=== PATIENT | male | born 1970 | race Caucasian/White ===

== ENCOUNTER 2016-10-01 15:59 | Emergency (ER) | payer BC ==
[2016-10-01] MEDS ORDERED: predniSONE 20 MG TAB PO STA (16:59)
--- NOTE | 2016-10-01 17:10 | ED ---
General Adult HPI - General Chief complaint: Eye Problems Stated complaint: Left side drooping, numbness Time Seen by Provider: 10/01/16 16:35 Source: patient Mode of arrival: ambulatory Limitations: no limitations - History of Present Illness Initial comments: This 46-year-old white male presents with the complaint of a left facial droop as well as some left tongue numbness, some left facial numbness, and decreased ability to close his left eye. He states that his symptoms came on yesterday. He has had some irritation to his left eye today. He denies any extremity weakness or paresthesias. He denies any problems with coordination. He denies any previous similar incidents. He relates that he is fairly healthy overall and is a runner. Was up in [place] when this occurred and they drove back down to home today to be further evaluated. 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 - Related Data Home Medications Medication Instructions Recorded Confirmed Aspirin EC [Ecotrin Low Dose] 81 mg PO DAILY 10/01/16 10/01/16 Atorvastatin [Lipitor] 40 mg PO DAILY 10/01/16 10/01/16 Levothyroxine Sodium [Synthroid] 50 mcg PO DAILY 10/01/16 10/01/16 Previous Rx's Medication Instructions Recorded predniSONE 20 mg PO TID #15 tab 10/01/16 valACYclovir HCL [Valtrex] 1,000 mg PO Q8HR #21 tab 10/01/16 Allergies Allergy/AdvReac Type Severity Reaction Status Date / Time No Known Allergies Allergy Unverified 10/01/16 16:32 Review of Systems ROS Statement: Those systems with pertinent positive or pertinent negative responses have been documented in the HPI. ROS Other: All systems not noted in ROS Statement are negative. Past Medical History Past Medical History: No Reported History, Hyperlipidemia History of Any Multi-Drug Resistant Organisms: None Reported Past Surgical History: Appendectomy Past Psychological History: No Psychological Hx Reported Smoking Status: Never smoker Past Alcohol Use History: None Reported Past Drug Use History: None Reported General Exam - General Exam Comments Initial Comments: GENERAL: The patient is well nourished and well hydrated. VITAL SIGNS: Heart rate, blood pressure, respiratory rate reviewed as recorded in nurse's notes. EYES: Pupils are round and reactive. Extraocular movements are intact. No lid redness or swelling. There is some very mild left conjunctival erythema. ENT: No external evidence of injury, swelling, or ecchymosis. Airway is patent. Throat is clear. There is an obvious left facial droop. It appears that the paralysis also effects his left forehead and eyebrow. NECK: Nontender. No swelling or evidence of injury. No subcutaneous emphysema. Trachea is midline. No thyroid mass. HEART: Regular rate and rhythm. Good peripheral pulses. LUNGS/CHEST: Breath sounds clear and equal bilaterally. No rales, rhonchi, or wheezes. No ecchymosis, subcutaneous emphysema, or tenderness. ABDOMEN: Abdomen soft without tenderness. No palpable masses or organomegaly. No peritoneal signs. No abdominal wall swelling or ecchymosis. EXTREMITIES: No extremity tenderness. Normal muscle tone and function. No thoracolumbar tenderness. Normal strength to extremities. NEUROLOGIC: Sensation is grossly intact to everywhere except for the left face. Cranial nerve exam reveals tongue is midline, speech is clear. There is an obvious left facial droop. There is some slight numbness in the inferior left face. SKIN: No abrasions or ecchymosis is noted. No induration or masses noted. PSYCHIATRIC: Alert and oriented. Appropriate behavior and judgment. Limitations: no limitations Course Vital Signs 10/01/16 16:03 Temperature 98.1 F Pulse Rate 18 L Respiratory 71 H Rate Blood Pressure 137/75 O2 Sat by Pulse 97 Oximetry Medical Decision Making - Medical Decision Making The patient is seen and examined. It is felt as though he has classic symptoms for Marquez's palsy. Is explained to him that he is to utilize the eye lubricating drops at least every one to 2 hours while symptoms persist during the day. He is to tape his left eye shut at night. It is felt as though he would benefit from some prednisone and Valtrex and is given 60 mg of prednisone in the ER. Is felt that he is stable for discharge and close follow-up with his doctor and leaves in no apparent distress. Disposition Clinical Impression: Marquez's palsy Disposition: HOME SELF-CARE Condition: Good Instructions: Eye Lubricant (Into the eye), Marquez Palsy (ED) Additional Instructions: Please take your left eye shut at night or whenever you sleep. Prescriptions: predniSONE 20 mg PO TID #15 tab valACYclovir HCL [Valtrex] 1,000 mg PO Q8HR #21 tab Referrals: Jesica Masterson III, MD [Primary Care Provider] - 1-2 days Time of Disposition: 17:05
[2016-10-01 17:26] VITALS: BP 115/80; PULSE 75; RESP 16; TEMP 97.9
== END 2016-10-01 17:32 | disposition home or self-care (01) ==
LOC: EC 15:59
DX: G51.0 Bell's palsy (principal); E78.5 Hyperlipidemia, unspecified; Z79.82 Long term (current) use of aspirin; Z79.899 Other long term (current) drug therapy
CPT/HCPCS: 99283; J7512

== ENCOUNTER 2019-01-01 11:43 | Day surgery (SDC) | payer BC ==
[2018-12-29 08:37] VITALS: BMI 30.5
[~2019-01-01 11:43] MED LIST: LACTATED RINGERS 1,000 ML IV SCH; LIDOCAINE 1% 20 ML VIAL (10MG/ML) FOR IV START INTRADERMA PRN
[2019-01-01 12:07] VITALS: RESP 16; TEMP 97.4
[2019-01-01] MEDS ORDERED: MIDAZOLAM 2 MG/2 ML VIAL ONE (13:27)
[2019-01-01] MEDS ORDERED: PROPOFOL 10 MG/ML 20 ML VIAL IV ONE (13:27)
--- NOTE | 2019-01-01 13:34 | P.GSHP ---
History of Present Illness H&P Date: 01/01/19 Chief Complaint: Screening colonoscopy Is a 48-year-old male who presents today for screening colonoscopy. Past Medical History Past Medical History: Hyperlipidemia, Osteoarthritis (OA), Thyroid Disorder History of Any Multi-Drug Resistant Organisms: None Reported Past Surgical History: Appendectomy Past Anesthesia/Blood Transfusion Reactions: No Reported Reaction Smoking Status: Never smoker - Past Family History Mother Family Medical History: No Reported History Medications and Allergies Home Medications Medication Instructions Recorded Confirmed Type Aspirin EC [Ecotrin Low Dose] 81 mg PO DAILY 10/01/16 12/29/18 History Atorvastatin [Lipitor] 40 mg PO DAILY 10/01/16 12/29/18 History Levothyroxine Sodium [Synthroid] 75 mcg PO DAILY 12/29/18 12/29/18 History Testosterone Cypionate 200 mg IM Q14D 12/29/18 12/29/18 History [Depo-Testosterone] Allergies Allergy/AdvReac Type Severity Reaction Status Date / Time No Known Allergies Allergy Unverified 01/01/19 11:59 Surgical - Exam Vital Signs Temp Pulse Resp BP Pulse Ox 97.4 F L 63 16 103/60 95 01/01/19 12:05 01/01/19 12:05 01/01/19 12:05 01/01/19 12:05 01/01/19 12:05 - General well developed, well nourished, no distress - Eyes PERRL - ENT normal pinna - Neck no masses - Respiratory normal expansion - Cardiovascular Rhythm: regular - Abdomen Abdomen: soft, non tender Assessment and Plan Assessment: We'll perform screening colonoscopy.
--- NOTE | 2019-01-01 13:42 | P.OP ---
Date of Procedure: 01/01/19 Preoperative Diagnosis: Screening colonoscopy Postoperative Diagnosis: Normal colon Procedure(s) Performed: Colonoscopy Anesthesia: MAC Surgeon: Jt Angel Pathology: none sent Condition: stable Disposition: PACU Description of Procedure: PROCEDURE: The patient was placed on the endoscopy table in the lateral position. Digital rectal examination was performed which revealed no abnormalities. The prostate was symmetrical without nodules. Flexible colonoscope was then placed in the patient's anus and passed throughout the entire colon. The ileocecal valve was visualized. The cecum, ascending, transverse, descending and sigmoid colon were normal. The rectum was normal as well. There were no masses, polyps or diverticula noted in the entire colon. SUMMARY OF FINDINGS: Normal colonoscopy.
[2019-01-01 14:04] VITALS: BP 109/71; PULSE 53
== END 2019-01-01 14:30 | disposition home or self-care (01) ==
LOC: ORWHC2ENDO 11:43
PROVIDERS: ATTEND Surgery
DX: Z12.11 Encounter for screening for malignant neoplasm of colon (principal); E07.9 Disorder of thyroid, unspecified; E78.5 Hyperlipidemia, unspecified; Z79.82 Long term (current) use of aspirin; Z79.890 Hormone replacement therapy; Z79.899 Other long term (current) drug therapy
CPT/HCPCS: J2250; J2704; G0121

== ENCOUNTER → 2022-02-15 | Outpatient (CLI) | payer BC ==
--- NOTE | 2022-02-15 10:49 | US ---
EXAMINATION TYPE: US abdomen complete DATE OF EXAM: 02/15/2022 COMPARISON: NONE CLINICAL HISTORY: R74.01 elevated levels. Elevated liver enzymes TECHNIQUE: Multiple sonographic images of the abdomen are obtained. FINDINGS: EXAM MEASUREMENTS: Liver Length: 17.5 cm Gallbladder Wall: 0.2 cm CBD: 0.4 cm Spleen: 11.9 cm Right Kidney: 10.5 x 5.1 x 5.3 cm Left Kidney: 11.4 x 6.0 x 6.1 cm Pancreas: obscured by overlying midline bowel gas Liver: measures in upper limits of normal, attenuating, increased echogenicity . No focal lesions d efinitively visualized. Gallbladder: wnl. No pericholecystic fluid, wall thickening, shadowing calculi. Evidence for sonographic Henderson's sign: no CBD: wnl Spleen: wnl Right Kidney: wnl . No hydronephrosis, shadowing calculi, or contour deforming solid mass. Left Kidney: wnl . No hydronephrosis, shadowing calculi, or contour deforming solid mass. Upper IVC: wnl Abd Aorta: proximal portion obscured by overlying midline bowel gas, visualized mid and distal porti ons appear wnl IMPRESSION: 1. No acute process. 2. Hepatic steatosis.
== END | disposition home or self-care (01) ==
LOC: RADUSWWP 06:55
PROVIDERS: ATTEND Family Medicine
DX: K76.0 Fatty (change of) liver, not elsewhere classified (principal)
CPT/HCPCS: 76700

== ENCOUNTER → 2022-03-22 | Outpatient (CLI) | payer BC ==
--- NOTE | 2022-03-22 12:11 | MR ---
EXAMINATION TYPE: MR Prostate wo/w con DATE OF EXAM: 03/22/2022 8:02 AM COMPARISON: None. CLINICAL INDICATION:Male, 52 years old with history of C61 MALIGNANT NEOPLASM OF PROSTATE; TECHNIQUE: Multi-planar, multi-sequence imaging of the pelvis is performed prior to and following the uncomplicated administration of bolus intravenous gadolinium. CONTRAST: 11 Gadavist Interpretive Criteria: PI-RADS v2.1 SERUM PSA: 1.8 - 06/29/2021 2.11 - 12/29/2020 SURGICAL PATHOLOGY: 03/17/2021 right lateral mid gland Jordyn 3+3=6 FINDINGS: Prostatic dimensions: 5.2 x 4.2 x 3.8 cm. "Bullet" Volume: 54.32 (PSA density=0.03 ng/mL/mL) CENTRAL GLAND (Central and Transition Zones/CZ+TZ): Multiple bilateral, heterogenous appearing hypertrophic stromal nodules, without suspicious lesion. S kirsty focus of intrinsic high T1 signal likely secondary to prostatitis and/or hemorrhage from prior biopsy (PI-RADS 2) PERIPHERAL ZONE (PZ): Bilateral linear, indistinct wedgelike areas of low ADC, and low T2 signal, No evidence of masslike a bnormality, or localized perfusional hypervascularity, to further suggest a focus of clinically signi ficant prostate cancer. (PI-RADS 2) SEMINAL VESICLES (SV): Symmetric and unremarkable. PERIPROSTATIC TISSUES: Unremarkable. LYMPH NODES: No enlarged pelvic lymph node. REMAINING PELVIS: Bladder wall is within normal limits given distention. No abnormal free or organized intrapelvic fluid collection. No pathologic bowel dilation or mural thickening. OSSEOUS STRUCTURES: No suspicious osseous abnormality. IMPRESSION: 1. No specific features for high-risk prostate cancer. Maximum PI-RADS score: 2. 2. Moderate BPH, estimated gland volume 54 mL. 3. No suspicious osseous lesion. No lymphadenopathy. No evidence of prostate adenocarcinoma involving the periprostatic tissues.
== END | disposition home or self-care (01) ==
LOC: RADMRIMAIN 07:04
PROVIDERS: ATTEND Urology
DX: C61 Malignant neoplasm of prostate (principal); N40.0 Benign prostatic hyperplasia without lower urinary tract symptoms
CPT/HCPCS: 72197; A9585

== ENCOUNTER → 2023-03-07 | Outpatient (CLI) | payer BC | END | disposition home or self-care (01) | LOC: LABWHC1 14:45 | PROVIDERS: ATTEND Urology | DX: C61 Malignant neoplasm of prostate (principal) | CPT/HCPCS: 36415; 84153 ==

== ENCOUNTER → 2023-06-22 | Outpatient (CLI) | payer BC ==
[2023-06-22 16:54] LABS: Basophils # (A) 0.05 X 10*3/uL (0.00-0.10); Basophils % (A) 0.9 %; Eosinophils # (A) 0.12 X 10*3/uL (0.04-0.35); Eosinophils % (A) 2.1 %; HCT 44.5 % (39.6-50.0); HGB 14.3 g/dL (13.0-17.0); Lymphocytes # (A) 1.94 X 10*3/uL (0.90-5.00); Lymphocytes % (A) 33.4 %; MCH 26.8 pg (27.0-32.0); MCHC 32.1 g/dL (32.0-37.0); MCV 83.3 FL (80.0-97.0); Mean Platelet Volume 9.2 FL (9.5-12.2); Monocytes # (A) 0.51 X 10*3/uL (0.20-1.00); Monocytes % (A) 8.8 %; NRBC Per 100 WBC 0 X 10*3/uL (0.00-0.01); Neutrophils # (A) 3.17 X 10*3/uL (1.80-7.70); Neutrophils % (A) 54.5 %; Platelet Count 274 X 10*3/uL (140-440); RBC 5.34 X 10*6/uL (4.40-5.60); RDW 13.8 % (11.5-14.5); WBC 5.81 X 10*3/uL (4.50-10.00)
[2023-06-22 17:06] LABS: Appearance,Urine Clear (Clear); Bilirubin,Urine Negative (Negative); Blood,Urine Negative (Negative); Color,Urine Yellow (Yellow); Ketones,Urine Negative (Negative); Nitrite,Urine Negative (Negative); PH, Urine 7.5; Urobilinogen,Urine 0.2 E.U./DL
[2023-06-22 17:08] LABS: BUN/Creat Ratio 16.56 Ratio (12.00-20.00); Blood Urea Nitrogen 14.9 mg/dL (9.0-27.0); Calcium 9.6 mg/dL (8.7-10.3); Carbon Dioxide 27.3 mmol/L (21.6-31.8); Chloride 104 mmol/L (96-109); Glucose 116 mg/dL (70-110); Sodium 141 mmol/L (135-145)
== END | disposition home or self-care (01) ==
LOC: LABPAT 08:10
PROVIDERS: ATTEND Urology
DX: Z01.812 Encounter for preprocedural laboratory examination (principal); C61 Malignant neoplasm of prostate
CPT/HCPCS: 36415; 80048; 81003; 85025; 86850; 86900; 86901; 87086

== ENCOUNTER 2023-06-30 09:43 | Day surgery (SDC) | payer BC ==
[2023-06-30] MEDS ORDERED: HYDROmorphone 0.5 MG/0.5 ML SYRINGE IVP PRN (10:11)
--- NOTE | 2023-06-30 10:37 | P.HPIHPCON ---
History of Present Illness H&P Date: 06/28/23 Chief Complaint: Prostate cancer This is a 53-year-old male with history of [place] 7 prostate cancer. Option of radiation therapy versus robotic prostatectomy was discussed with him in detail, he agreed to proceed with a robotic radical prostatectomy. Aware the risk which includes but not limited to bleeding, infection, erectile dysfunction, urine incontinence. Discussed risk of injury to nearby organs which include but not limited to bladder, rectum and bowel. Risk of anesthesia was also discussed. Discussed potential needing additional treatments and potential of cancer recurrence. He Understood all the risk and agreed proceed Consent for Procedure: I have explained the operation/procedure to the patient, including the risks, benefits, side effects, alternative therapies (including not receiving the proposed treatment or service), the likelihood of the patient achieving his/her goals, and potential recuperation problems for the procedure/sedation/analgesia, as well as any blood products, if indicated. I also explained to the patient the risks, benefits and side effects of the alternatives, as well as the risks related to not receiving the proposed procedure, care, treatment, or services. Past Medical History Past Medical History: Hyperlipidemia, Osteoarthritis (OA), Thyroid Disorder Additional Past Medical History / Comment(s): hypothyroidism, prostate cancer dx. 2021 History of Any Multi-Drug Resistant Organisms: None Reported Past Surgical History: Appendectomy Past Anesthesia/Blood Transfusion Reactions: No Reported Reaction Smoking Status: Never smoker - Past Family History Mother Family Medical History: No Reported History Medications and Allergies Home Medications Medication Instructions Recorded Confirmed Type Aspirin EC [Ecotrin Low Dose] 81 mg PO DAILY 10/01/16 06/27/23 History Atorvastatin [Lipitor] 40 mg PO QAM 10/01/16 06/27/23 History Levothyroxine Sodium [Synthroid] 88 mcg PO QAM 06/27/23 06/27/23 History Multivitamin [Multivitamins Adult 1 each PO QAM 06/27/23 06/27/23 History Gummies] Sildenafil Citrate 20 mg PO DAILY PRN 06/27/23 06/27/23 History Allergies Allergy/AdvReac Type Severity Reaction Status Date / Time No Known Allergies Allergy Verified 06/30/23 10:18 Surgical - Exam - General no distress, no pain - Eyes normal ocular movement, no pale - ENT normal nares, normal mucosa - Respiratory normal expansion, normal respiratory effort - Abdomen Abdomen: soft, non tender Assessment and Plan Assessment: OR for robotic radical prostatectomy possible pelvic lymph node dissection
[2023-06-30] MEDS: LACTATED RINGERS 1,000 ML IV SCH (10:45)
[2023-06-30] MEDS: LIDOCAINE 1% (10MG/ML) FOR IV START INTRADERMA ONE ×2 (10:45→10:50)
[2023-06-30] MEDS: DEXAMETHASONE SOD PHOSPHATE 4 MG/ML 1 ML VIAL IV ONE (11:00)
[2023-06-30] MEDS: ONDANSETRON 4 MG/2 ML VIAL IVP ONE (11:00)
[2023-06-30] MEDS: MIDAZOLAM 2 MG/2 ML VIAL IVP ONE (11:11)
[2023-06-30] MEDS: HEPARIN SODIUM,PORCINE 5,000 UNIT/ML 1 ML VIAL SQ PRN (11:20)
[2023-06-30] MEDS ORDERED: MIDAZOLAM 2 MG/2 ML VIAL ONE (11:35)
[2023-06-30] MEDS ORDERED: fentaNYL (PF) 50 MCG/ML 2 ML AMP ONE (11:35)
[2023-06-30] MEDS ORDERED: ROPIVACAINE 5 MG/ML 30 ML VIAL ONE (11:35)
[2023-06-30] MEDS ORDERED: NEOSTIGMINE 1 MG/ML 10 ML VIAL ONE (11:35)
[2023-06-30] MEDS ORDERED: HYDROmorphone (PF) 1 MG/ML ONE (11:35)
[2023-06-30] MEDS ORDERED: SUCCINYLCHOLINE CHLORIDE 200 MG/10 ML VIAL IV ONE (11:35)
[2023-06-30] MEDS ORDERED: GLYCOPYRROLATE 0.2 MG/ML 2 ML VIAL ONE (11:35)
[2023-06-30] MEDS ORDERED: DEXAMETHASONE SOD PHOSPHATE 4 MG/ML 1 ML VIAL ONE (11:35)
[2023-06-30] MEDS ORDERED: PROPOFOL 10 MG/ML 20 ML VIAL IV ONE (11:35)
[2023-06-30] MEDS ORDERED: SODIUM CHLORIDE 0.9% (PF) 10 ML VIAL ONE (11:35)
[2023-06-30] MEDS ORDERED: ROCURONIUM 10 MG/ML (5 ML VIAL) IV ONE (11:35)
[2023-06-30] MEDS ORDERED: LIDOCAINE 1% INJ 10MG/ML (20 ML MDV) ONE (11:35)
[2023-06-30] MEDS ORDERED: ONDANSETRON 4 MG/2 ML VIAL IVP PRN (12:04)
--- NOTE | 2023-06-30 12:32 | P.ANPRN ---
Procedure Note - Anesthesia - Nerve Block Performed Bilateral Erector Spinae Single Time Out Performed: Yes Date of Procedure: 06/30/23 Procedure Start Time: :11 Procedure Stop Time: :19 Location of Patient: PreOp Indication: Acute Post-Operative Pain, Requested by Surgeon Sedation Type: Sedate with meaningful contact maintained Preparation: Sterile Prep Position: Prone Needle Types: Pajunk Needle Gauge: 21 Ultrasound used to visualize needle placement: Yes Ultrasound used to observe medication spread: Yes Blood Aspirated: No Pain Paresthesia on Injection Noted: No Resistance on Injection: Normal Image Stored and Saved: Yes Events: Uneventful and Well Tolerated (ropi .5% 15cc plus ns 10cc plus dexamethasone 4mg given bilaterally at L1)
[2023-06-30] MEDS: BUPIVACAINE (PF) 0.25% 30 ML VIAL SQ ONE ×2 (12:54→15:53)
--- NOTE | 2023-06-30 15:39 | P.OP ---
Date of Procedure: 06/30/23 Preoperative Diagnosis: Prostate cancer Postoperative Diagnosis: Same Procedure(s) Performed: Robotic radical prostatectomy Implants: None Anesthesia: LOC Surgeon: Caleb Cartagena Estimated Blood Loss (ml): 150 Pathology: other (Prostate and bilateral seminal vesicles) Condition: stable Disposition: PACU Indications for Procedure: This is a 53-year-old male with history of [place] 7 prostate cancer. Option of radiation therapy versus robotic prostatectomy was discussed with him in detail, he agreed to proceed with a robotic radical prostatectomy. Aware the risk which includes but not limited to bleeding, infection, erectile dysfunction, urine in continence. Discussed risk of injury to nearby organs which include but not limited to bladder, rectum and bowel. Risk of anesthesia was also discussed. Discussed potential needing additional treatments and potential of cancer recurrence. He Understood all the risk and agreed proceed Description of Procedure: After preoperative antibiotics were started, the patient was taken to the operating room. Anesthesia was induced and the patient was placed in a supine position, with adequate padding of the pressure points, shoulders, back, legs and arms. He was then prepped and draped in the standard fashion. A critical pause was performed using two patient identifiers. A 16F mera catheter was placed to gravity drainage. A pneumo-peritoneum was created with placement of a Veress needle to 20 mm Hg without complication, and a 8 Fr trocar was placed above the umbillicus. Under direct vision a 8mm robotic ports was placed lateral to each rectus slightly below the camera port. The left iliac fossa 8mm port was placed. The right support assistant right iliac fossa 12mm port and right paramedian 5mm portwere placed. After the patient was placed in the trendelenberg position, the robot was then docked to the 8mm robotic ports and then each robotic arm and tower was checked in relation to the patient's legs and hands to avoid inadvertent compression. The peritoneal cavity was inspected. An inverted U-shaped incision began laterally to the left medial umbilical ligament and extended high across the midline to the right umbilical ligament. The limbs of the "U" extended to the level of the vasa on both sides. We next developed the preperitoneal space and the space of Retzius. Cautery was used to dissected the bladder away from the prostate. After the anterior bladder neck was incised and the bladder entered the the posterior bladder neck was exposed and the ureteral orifces identified. The posterior bladder neck was then incised and dissected away from the prostate. The vas and the seminal vesicles were now exposed and dissected to their insertions into the prostate and were not spared. The posterior layer of the Denonvillier's fascia was incised to enter giuseppe the plane between prostate and perirectal fat. Each lateral pedicle was controlled with clips and cautery for hemostasis. Complete nerve preservation was performed bilaterally. The puboprostatic ligament was incised where it inserted into the apex of the prostate and a plane between urethra and dorsal venous complex developed to expose the anterior urethral surface. The anterior wall of the urethra was transected with the cut setting a few millimeters distal to the apex of the prostate. The dorsal vein was ligated using 3-0 V lock there was thickened tissue along the posterior ur ethra, this was suspicious for possible prostatic tissue the tissue was completely excised and sent to pathology as apical margin The urethrovesical anastomosis was performed . the posterior denovillers was reapproximated using 3-0 V lock. A 9 and 6 inch 3-0 V-Lock suture was used to anastomose the urethra and bladder, starting at the 6:00 posterior position. Mucosa was secured in every stitch, to ensure a mucosa to mucosa anastomosis. The stitch was regularly cinched and the anastomosis tightened. Care was taken to not violate the ureteral orifices. The Mera catheter was advanced, the bladder filled, and the anastomosis was tested, as described above. Anastomsis was watertight at 150 mL The periumbilical fascia was closed with 1-0-PDS suture in [id number] fashion. All ports were closed with a subcuticular 4-0 monocryl and Dermabond. Sponge, instrument, and needle counts were correct at the end of the case x2. All specimens was sent to pathology for diagnosis and will be available in a week. The patient tolerated the surgery well and without complication. He awoke without difficulty and was taken to the recovery room in stable condition
[2023-06-30] MEDS: HYDROmorphone 0.5 MG/0.5 ML SYRINGE IVP ONE (16:10)
[2023-06-30] MEDS: LACTATED RINGERS 1,000 ML IV ONE (16:13)
[2023-06-30] MEDS: SCOPOLAMINE 1 MG/72 HR PATCH TRANSDERM ONE (17:20)
[2023-06-30] MEDS: droPERidol 5 MG/2 ML VIAL IVP ONE (17:20)
[2023-06-30] MEDS: HEPARIN SODIUM,PORCINE 5,000 UNIT/ML 1 ML VIAL SQ SCH (17:20)
[2023-06-30] MEDS: D5-0.45% NACL WITH KCL 20MEQ/L 1,000 ML IV SCH (18:57)
[2023-06-30] MEDS: KETOROLAC 15 MG/ML 1 ML VIAL IVP SCH (21:29)
[2023-06-30] MEDS: BACTRIM DS PO SCH (21:35)
[2023-06-30] MEDS: HYDROmorphone 1 MG/ML 1 ML SYRINGE IVP PRN (21:35)
[2023-07-01] MEDS: LEVOTHYROXINE 88 MCG TAB PO SCH (06:30)
[2023-07-01 07:44] VITALS: BP 102/66; PULSE 68; RESP 18; TEMP 98.3
[2023-07-01] MEDS: ATORVASTATIN 40 MG TAB PO SCH (09:01)
[2023-07-01] MEDS: HYDROcodone/APAP 5-325MG 1 EACH TAB PO PRN (10:05)
--- NOTE | 2023-07-01 11:29 | P.DS ---
Providers Attending physician: Caleb Cartagena MD Primary care physician: [facility] Course: This is a 53-year-old male with history of [place] 7 prostate cancer, underwent a robotic radical prostatectomy. Please see op note dated June 29 for surgery details. Patient was admitted to the hospital postoperatively. He was discharged home on postop day #1 with the Ornelas catheter, at time of discharge he was tolerating a diet, ambulating, and pain was controlled Plan - Discharge Summary Discharge Rx Participant: Yes New Discharge Prescriptions: New Ketorolac [Toradol] 10 mg PO Q6HR PRN #15 tab PRN Reason: Pain Sulfamethox-Tmp 800-160Mg [Bactrim DS 800-160 mg] 1 tab PO Q12HR #6 tab No Action Atorvastatin [Lipitor] 40 mg PO QAM Aspirin EC [Ecotrin Low Dose] 81 mg PO DAILY Levothyroxine Sodium [Synthroid] 88 mcg PO QAM Sildenafil Citrate 20 mg PO DAILY PRN PRN Reason: erectile dysfunction Multivitamin [Multivitamins Adult Gummies] 1 each PO QAM Discharge Medication List Aspirin EC [Ecotrin Low Dose] 81 mg PO DAILY 10/01/16 [History] Atorvastatin [Lipitor] 40 mg PO QAM 10/01/16 [History] Levothyroxine Sodium [Synthroid] 88 mcg PO QAM 06/27/23 [History] Multivitamin [Multivitamins Adult Gummies] 1 each PO QAM 06/27/23 [History] Sildenafil Citrate 20 mg PO DAILY PRN 06/27/23 [History] Ketorolac [Toradol] 10 mg PO Q6HR PRN #15 tab 07/01/23 [Rx] Sulfamethox-Tmp 800-160Mg [Bactrim DS 800-160 mg] 1 tab PO Q12HR #6 tab 07/01/23 [Rx] Activity/Diet/Wound Care/Special Instructions: It is normal to have blood in the urine No heavy lifting or straining for 4 weeks You may shower, no baths Complete the initial antibiotics as prescribed. Start your new prescription 1 day prior to your follow-up
== END 2023-07-01 13:48 | disposition home or self-care (01) ==
LOC: OR 09:43 → 4SSUR 15:58 → OR 07-01 13:48
PROVIDERS: ATTEND Urology
DX: C61 Malignant neoplasm of prostate (principal); E78.5 Hyperlipidemia, unspecified; E03.9 Hypothyroidism, unspecified; G89.18 Other acute postprocedural pain; M19.90 Unspecified osteoarthritis, unspecified site; Z90.49 Acquired absence of other specified parts of digestive tract; Z79.82 Long term (current) use of aspirin
CPT/HCPCS: 55866; S2900; 64999; 88309

== ENCOUNTER → 2024-02-13 | Outpatient (CLI) | payer BC | END | disposition home or self-care (01) | LOC: LABWHC1 14:23 | PROVIDERS: ATTEND Urology | DX: C61 Malignant neoplasm of prostate (principal) | CPT/HCPCS: 36415; 84153 ==

== ENCOUNTER → 2024-07-16 | Outpatient (CLI) | payer BC | END | disposition home or self-care (01) | LOC: LABWHC1 14:35 | PROVIDERS: ATTEND Urology | DX: C61 Malignant neoplasm of prostate (principal) | CPT/HCPCS: 36415; 84153 ==